=== PATIENT | female | born 1965 | race Two or more races ===

== ENCOUNTER 2016-06-14 23:45 | Emergency (ER) | payer SELFPAY ==
[~2016-06-14] VITALS: Ht 167.6 cm; Wt 77.1 kg
[2016-06-14] MEDS ORDERED: ONDANSETRON 4 MG TAB.RAPDIS ONE (23:58)
[2016-06-15] MEDS ORDERED: ONDANSETRON 4 MG TAB.RAPDIS SL ONE
[2016-06-15] MEDS ORDERED: IV NS 0.9% 500 ML IV ONE (00:50)
[2016-06-15] MEDS ORDERED: LORAZEPAM INJ 2 MG/ML VIAL ONE (00:51)
[2016-06-15] MEDS ORDERED: IV NS 0.9% 1,000 ML BAG IV ONE (01:00)
[2016-06-15] MEDS ORDERED: LORAZEPAM INJ 2 MG/ML VIAL IV ONE (01:00)
[2016-06-15 02:41] VITALS: BP 124/84
== END 2016-06-15 02:42 | disposition home or self-care (01) ==
LOC: ER 23:53
DX: R42 Dizziness and giddiness (principal); R11.10 Vomiting, unspecified
CPT/HCPCS: 96374; 99284; A4606; J2060; J7040; Q0162; Z7610